=== PATIENT | female | born 1955 | race Caucasian/White ===

== ENCOUNTER → 2017-04-22 | Outpatient (CLI) | payer OTHER ==
[2015-11-12 14:41] VITALS: BP 138/95
[~2017-04-22] MED LIST: CIPR250T PO; CYCL-331 PO; ESOM40CA25 PO; FLUT1DIS3 IH; FLUT9.9S NS; GUAI-107 PO; HYDR-2758 PO; IBUP200T43 PO; IPRA14.7 IH; LEVO100T5 PO; LEVO150T5 PO; LEVO500T59 PO; ONDA4TAB7 PO; POTA10TA5 PO; PRED-220 PO; PROM118S2 PO; Potassium Chloride PO; TRAM50TA PO; ZOLP10TA PO; amitriptyline PO; trazodone PO
--- NOTE | 2017-04-22 15:25 | RAD ---
Indication pleuritic chest pain. Cough. History of asthma. PA and lateral views of the chest were obtained. Comparison is made to an examination 02/01/2017. There is hyperexpansion. There are background changes compatible with emphysema or fibrosis. There is new volume loss at the lung bases. This could represent atelectasis or pneumonia. There are probable tiny pleural effusions. Heart size is at the upper limits of normal. There is no gross congestive heart failure. IMPRESSION: Chronic background changes compatible with emphysema and/or fibrosis. New volume loss at the lung bases which would be consistent with atelectasis or pneumonia. Small pleural effusions.
== END | disposition home or self-care (01) ==
LOC: DXRADRC 15:07
PROVIDERS: ATTEND Physician Assistant
DX: J43.9 Emphysema, unspecified (principal); J90 Pleural effusion, not elsewhere classified; J45.909 Unspecified asthma, uncomplicated; R05 Cough; F17.200 Nicotine dependence, unspecified, uncomplicated
CPT/HCPCS: 71020